=== PATIENT | female | born 1940 | race Caucasian/White ===

== ENCOUNTER → 2019-08-08 | Outpatient (CLI) | payer MEDICARE ==
--- NOTE | 2019-08-08 12:08 | RAD ---
RIGHT BREAST SONOGRAPHY Clinical indications: Recent lumpectomy and radiation therapy of the right breast in May 2019 for breast cancer. Now has redness and swelling and hardness of the right breast. FINDINGS: High-resolution sonography of all 4 quadrants and the retroareolar region of the right breast were performed. There is a large complex fluid collection with septations occupying almost the entire residual right breast but mainly located in the upper outer quadrant. This measures 8.6 cm x 7.0 cm x 8.4 cm in size. No significant internal color flow is seen within it. This is consistent with a postoperative seroma or hematoma and may be infected i.e. abscess given the clinical finding of redness. Sonography of the right axillary region was performed and no abnormal enlarged lymph node is seen. IMPRESSION: Large complex fluid collection within the right breast measuring 8.6 cm in greatest dimension. It is consistent with a postoperative seroma or hematoma and may be infected i.e. abscess given the clinical finding of redness. The patient was held in the radiology department until further instruction. I instructed the radiologic technologist mammogram to call the patient's physician for further instructions. BI-RADS Category 2 benign finding
== END | disposition home or self-care (01) ==
LOC: US 11:23
PROVIDERS: ATTEND Surgery
DX: N61.0 Mastitis without abscess (principal)
CPT/HCPCS: 76641